=== PATIENT | female | born 1975 | race Caucasian/White ===

== ENCOUNTER → 2017-06-20 | Outpatient (CLI) | payer BC ==
[~2017-06-20] MED LIST: ALBUAER19 INH; CLR10 PO; MAGN250T9 PO; [UNRECOGNIZED DRUG - CODE] PO
== END | disposition home or self-care (01) ==
LOC: C.PAPS 10:02
PROVIDERS: ATTEND Obstetrics & Gynecology
DX: Z01.419 Encounter for gynecological examination (general) (routine) without abnormal findings (principal)

== ENCOUNTER → 2017-11-03 | Outpatient (CLI) | payer BC, OTHER ==
--- NOTE | 2017-11-03 08:55 | DIAGNOSTIC IMAGING REPORT ---
R KNEE 4 OR MORE CLINICAL HISTORY: 42 years-old Female presenting with PROXIMAL LATERAL RIGHT KNEE PAIN. TECHNIQUE: Frontal view of the bilateral knees in standing position as well as sunrise, tunnel, and lateral views the right knee were obtained. COMPARISON: None. FINDINGS: Bilateral joint spaces are preserved on the standing frontal view. No acute fracture or malalignment. No advanced degenerative change. Trace knee joint effusion may be present. IMPRESSION: No acute osseous injury. Electronically signed by: Derick Portillo M.D. 11/03/2017 8:54 AM Dictated Date/Time: 11/03/2017 8:52 AM
== END | disposition home or self-care (01) ==
LOC: C.RDSM 16:23
PROVIDERS: ATTEND Physician Assistant
DX: M25.561 Pain in right knee (principal)

== ENCOUNTER → 2017-11-20 | Outpatient (CLI) | payer OTHER ==
--- NOTE | 2017-11-20 18:18 | DIAGNOSTIC IMAGING REPORT ---
RIGHT KNEE MRI HISTORY: RIGHT KNEE PAIN COMPARISON STUDY: Right knee 11/03/2017. TECHNIQUE: Multiplanar multisequence MRI of the right knee was performed according to standard department protocol without the use of contrast. FINDINGS: Menisci: The medial and lateral menisci are intact. Ligaments: The anterior and posterior cruciate ligaments are intact. The medial and lateral collateral ligaments are normal in appearance. Extensor mechanism: The quadriceps tendon and patellar ligament are intact. Articular cartilage and bone: The articular cartilage is intact, and normal marrow signal intensity is seen throughout the imaged osseous structures. Joint effusion: None. Soft tissues: Mild prepatellar subcutaneous edema. There is also minimal edema deep to the distal iliotibial band. IMPRESSION: 1. Minimal edema deep to the distal iliotibial band. 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 2. Otherwise, no evidence for internal derangement within the knee. Electronically signed by: Josue Buckley M.D. 11/20/2017 6:16 PM Dictated Date/Time: 11/20/2017 6:11 PM
== END | disposition home or self-care (01) ==
LOC: C.MRIBC 16:29
PROVIDERS: ATTEND Physical Medicine & Rehabilitation Sports Medicine
DX: M25.561 Pain in right knee (principal); Z88.0 Allergy status to penicillin; Z88.2 Allergy status to sulfonamides; Z88.1 Allergy status to other antibiotic agents; Z88.8 Allergy status to other drugs, medicaments and biological substances